=== PATIENT | female | born 2000 | race Caucasian/White ===

== ENCOUNTER 2024-12-30 00:13 | Emergency (ER) | payer BC, SELFPAY ==
[2024-12-30 00:18] VITALS: BP 132/77; PULSE 99; RESP 20; TEMP 37.6
--- NOTE | 2024-12-30 00:31 | W.ED.GENAD ---
Discharge Plan Disposition Patient Disposition: Home Condition: Good Discharge Details Clinical Impression: Vomiting during , Low serum potassium level Primary Care Provider: Unknown,Unknown ED Provider: Adelia Stevenson Home Meds and New Rx's Prescriptions: Continued PNV no.95-ferrous fumarate-FA [] 28 mg iron- 800 mcg tablet 1 tab PO DAILY Discharge Instructions Instructions: Hypokalemia, Morning Sickness ED, Nausea and vomiting in adults, High-potassium diet Additional Instructions: Your nausea and vomiting are likely due to your though we cannot say this with 100% certainty. It is important that you return to the emergency department if you develop other symptoms such as fever or abdominal pain. You can take doxylamine (sometimes under the brand name Unisom) and pyridoxine (Vitamin B6) to help with your symptoms. Take 20mg of doxylamine and 20mg of pyridoxine at bedtime. Call your appliance service technician in the morning to schedule an appointment for as soon as possible (no later than 72 hours) to followup on your visit here and discuss what medications you should take for your nausea. Your potassium was slightly low here in the ED, likely because if your vomiting. Your doctor may want to repeat this blood test, especially if you continue vomiting, and/or start you on a potassium supplement. In the meantime try to increase the amount of potassium in your diet. Return to the emergency department for new or worsening symptoms including fever, abdominal pain, feeling like you are going to pass out, not urinating, or if you cannot keep down any fluids. Stand Alone Forms: Work Release HPI General Date/Time Provider Initiated Documentation: 12/30/24 00:14. Information obtained by: old records reviewed ([facility] this week). HPI Narrative: 24yo F with hx of migraines, currently 10 weeks 5 days with julio IUP by US on 12/27/24, presenting for vomiting. Has had vomiting and and off for the past several weeks, often only once in the morning but sometimes up to 3-4 times a day. Today she has been vomiting consistently all day, ~8 times, does not think she is keeping anything down. Nonbloody nonbilious. This afternoon began to develop a migraine typical of her usual migraines (sharp, left sided, moderate to severe); these usually resolve with tylenol and ibuprofen and rest at home, however she is not able to take ibuprofen currently and vomited immediately after taking the tyelnol. Headache persists and remains typical of her usual migraines. She does not usually have N/V with her headaches; today N/V started before the headache. No numbness, tingling, weakness, no recent head injuries. No recent head injuries. No abdominal pain. No vaginal discharge. No fevers, chills, rash, chest pain, shortness of breath, LE edema, or other concerns. Related Data Home Medications ?Medication ?Instructions ?Recorded ?Confirmed vit no.95-ferrous 1 tab PO DAILY 12/30/24 12/30/24 fumarate 28 mg-folic acid 800 mcg tablet () Allergies Allergy/AdvReac Type Severity Reaction Status Date / Time No Known Allergies Allergy Verified 12/30/24 00:33 Exam Narrative Exam Narrative: General: Alert, well appearing, well nourished, in no acute distress. Head: Normocephalic, atraumatic Neck: Trachea midline, ?Neck supple. ENT: ?MMM.? No oropharygeal lesions or exudate. Cardiac: ?RRR, no murmurs appreciated Resp: No respiratory distress. CTAB. Abd: ?Soft, non-distended, nontender : ?No suprapubic tenderness. Extremities: ?No deformities.? No peripheral edema. Neuro: ? GCS 15.? PERRL.? EOMI.? Fluent speech, no dysarthria. Motor- 5/5 strength symmetric bilateral upper and lower extremities Sensation- ?Intact to light touch and symmetric including upper and lower extremities Gait/station: ?Normal stance.? No truncal ataxia. Steady gait with equal normal steps CRANIAL NERVES: II: Pupils equal and reactive, III, IV, : EOM intact, no gaze preference or deviation, no nystagmus. V: normal sensation in V1, V2, and V3 segments bilaterally VII: no asymmetry, no nasolabial fold flattening VIII: normal hearing to speech IX, X: normal palatal elevation, no uvular deviation XI: 5/5 head turn and 5/5 shoulder shrug bilaterally XII: midline tongue protrusion Medical Decision Making 24yo F with hx of migraines, currently 10 weeks 5 days with julio IUP by US on 12/27/24, presenting for vomiting. ~8 episodes today, does not think she is keeping anything done. Also has a migraine typical of her usual migraines which started this afternoon; was unable to keep down tylenol at home, headache persists. Otherwise well with no abdominal pain or fevers. Vital signs reassuring on arrival, non-toxic on exam, no abdominal tenderness, MM are slightly dry. FHT 130's. Not suggestive of meningitis, encephalitis, intracranial hemmoraghe, giant cell arteritis, bowel obstruction, appendicitis, cholecystitis, ectopic , or other surgical intrabdominal/pelvic process. Not septic. Will give 1L IVFB and treat for N/V as well as migraine; IV reglan, benadryl, acetaminophen, and PO pyridoxine when able to to tolerate PO. Labs reviewed as below, CBC with mild leukocytosis (nonspecific), CMP with borderline low potassium at 3.4 otherwise no electrolyte abnormalities and no acidosis, Mg normal. Will replace potassium orally when able to tolerate PO. EKG NSR, appropriate intervals, no ST segment or T wave abnormalities to suggest occlusive VT, no concerning sequelae of hypokalemia. On reassessment patient reports feeling much better. Headache entirely gone, Nausea much improved. Repeat vital signs reassuring. No further vomiting while in the ED. PO challenged and tolerated well, took oral potassium. Appropriate for close outpatient followup with her OB. The importance of following up for her symptoms and her low potassium (especially if she continues vomiting) was stressed. Advised B6 and doxylamine at home for symptoms. Discharged home; discharge instructions and return precautions were reviewed with patient who verbalized understanding. All questions were answered and she is in full agreement with the plan. Medical Records Medical records reviewed: Yes I reviewed the patient's medical records. Lab Data Lab results reviewed: Yes I reviewed the patient's lab results. Labs: Laboratory Tests Range/Units 12/30/24 00:25 WBC (4.4-10.8) 10^3/uL 14.53 H RBC (3.93-5.22) 10^6/uL 4.69 Hgb (11.2-15.7) g/dL 14.4 Hct (36.0-46.0) % 41.7 MCV (80-95) fL 89 MCH (27.0-33.0) pg 30.7 MCHC (32.0-36.0) % 34.5 RDW (11.7-14.6) % 12.7 Plt Count (130-400) 10^3/uL 301 MPV (8.0-11.0) fL 10.5 Immature Gran % % 0.3 Neutrophils % % 81.4 Lymphocytes % % 13.4 Monocytes % % 4.5 Eosinophils % % 0.1 Basophils % % 0.3 Nucleated RBC % (0.0-0.3) % 0.0 Absolute Neutrophils (1.2-6.7) 10^3/uL 11.83 H Absolute Lymphocytes (1.2-3.4) 10^3/uL 1.95 Absolute Monocytes (0.1-0.8) 10^3/uL 0.65 Absolute Eosinophils (0.0-0.7) 10^3/uL 0.01 Absolute Basophils (0.0-0.2) 10^3/uL 0.04 Sodium (136-145) mmol/L 139 Potassium (3.5-5.1) mmol/L 3.4 L Chloride (98-107) mmol/L 103 Carbon Dioxide (21.0-32.0) mmol/L 26.0 Anion Gap (3-11) mmol/L 10.0 BUN (7-18) mg/dL 5 L Creatinine (0.55-1.02) mg/dL 0.6 Est GFR (CKD-EPI 2020) (mL/min/1.73m2) 130.07 Glucose (74-106) mg/dL 92 Calcium (8.5-10.1) mg/dL 9.3 Magnesium (1.8-2.4) mg/dL 2.0 Total Bilirubin (0.2-1.0) mg/dL 0.4 AST (15-37) U/L 9 L ALT (14-59) U/L 16 Alkaline Phosphatase (46-116) U/L 103 Total Protein (6.4-8.2) g/dL 7.6 Albumin (3.4-5.0) g/dL 3.6 PFSH All Active Problems (Updated 12/30/24 @ 02:24 by Adelia Stevenson MD) Low serum potassium level (Acute) Vomiting during (Acute) Social History Smoking/Tobacco Use Status: Never Smoking risk assessment performed?: Yes
[2024-12-30 00:34] LABS: Abs Immature Grans 0.04 10^3/uL (0.0-0.06); HCT 41.7 % (36.0-46.0); HGB 14.4 g/dL (11.2-15.7); Immature Grans % 0.3 %; MCH 30.7 pg (27.0-33.0); MCHC 34.5 % (32.0-36.0); MCV 89 fL (80-95); MPV 10.5 fL (8.0-11.0); Platelet Count 301 10^3/uL (130-400); RBC 4.69 10^6/uL (3.93-5.22); RDW 12.7 % (11.7-14.6); RDW-SD 41.4 fL; WBC 14.53 10^3/uL (4.4-10.8)
[2024-12-30] MEDS: Normal Saline 1,000 ML 1000 ML IV (00:46)
[2024-12-30] MEDS: diphenhydrAMINE 50 MG/ML VIAL IVP (00:47)
[2024-12-30] MEDS: Metoclopramide 10 MG/2 ML VIAL IVP (00:47)
[2024-12-30] MEDS: ACETAMINOPHEN 1,000 MG/100 ML BAG 400 MG IVPB (00:48)
[2024-12-30 00:49] LABS: ALT 16 U/L (14-59); AST 9 U/L (15-37); Albumin 3.6 g/dL (3.4-5.0); Alkaline Phosphatase 103 U/L (46-116); Anion Gap 10.0 mmol/L (3-11); BUN 5 mg/dL (7-18); Bilirubin, Total 0.4 mg/dL (0.2-1.0); CO2 26.0 mmol/L (21.0-32.0); Calcium 9.3 mg/dL (8.5-10.1); Chloride 103 mmol/L (98-107); Estimated GFR 130.07 (mL/min/1.73m2); Glucose 92 mg/dL (74-106); Magnesium 2.0 mg/dL (1.8-2.4); Potassium 3.4 mmol/L (3.5-5.1); Sodium 139 mmol/L (136-145); Total Protein 7.6 g/dL (6.4-8.2)
--- NOTE | 2024-12-30 01:45 | RT.EKG_ITS ---
APPROVED REPORT Exam: Resting ECG Reason for Exam: borderline hypokalemia Patient Location: E HR:77 bpm ECG Measurements Heart Rate 77 AXIS SC 131 P 26 QRSd 69 QRS 57 QT 390 T 34 QTc 443 Conclusion Sinus rhythm...normal P axis, V-rate 60- [address] segment or T wave abnormalities to suggest occlusive CA
[2024-12-30] MEDS: Potassium Chloride Liquid 20 MEQ PKT PO (02:20)
[2024-12-30 02:23] VITALS: BP 99/57; PULSE 72; RESP 14; TEMP 36.9; O2SAT 100
== END 2024-12-30 03:15 | disposition home or self-care (01) ==
PROVIDERS: Emergency Provider Student in an Organized Health Care Education/Training Program
DX: E87.6 Hypokalemia; Z3A.10 10 weeks gestation of pregnancy; O21.8 Other vomiting complicating pregnancy
CPT/HCPCS: 80053; 81025; 93005; 96365; 96375; 99284; 83735; 85025; 93010; 99283; J0131; J1200; J2765

== ENCOUNTER 2025-01-13 16:12 | Emergency (ER) | payer BC, SELFPAY ==
[2025-01-13 16:16] VITALS: BP 118/78; PULSE 87; RESP 18; TEMP 36.3; O2SAT 98
--- NOTE | 2025-01-13 16:27 | W.ED.GENAD ---
Discharge Plan Disposition Patient Disposition: Home Condition: Stable Discharge Details Clinical Impression: Constipation during Primary Care Provider: Unknown,Unknown ED Provider: Ashley Mendoza Home Meds and New Rx's Prescriptions: No Action PNV no.95-ferrous fumarate-FA [] 28 mg iron- 800 mcg tablet 1 tab PO DAILY ondansetron HCl 4 mg tablet 4 mg PO BID-TID PRN Discharge Instructions Instructions: Constipation, Adult ED Additional Instructions: Please use the enema at home as directed. Wait approximately 30 to 45 minutes, the longer you can keep it in the better able to work. If you have no production of bowel movement please drink half of the magnesium citrate, wait approximately 30 to 45 minutes and then drink the other half. This should produce a bowel movement in 1 to 2 hours. Or sooner. Please continue to increase oral fluids, increase movement. Constipation is not uncommon with and as your prior progresses you may find it harder to have normal bowel movements. Follow up with primary care provider in 3-5 days. Return to ED sooner if any worsening or concerns. Thank you for allowing us to care for you today. Stand Alone Forms: Portal Information Referrals: [facility] [place] [Provider Group] - 5 days Referral Note: ER follow up call for appt Clinical Impression: Constipation during [employer] INTERFACE DEVELOPER,[facility] [OTHER, [employer] US[employer] INTERFACE DEVELOPER] HPI General Mode of arrival: ambulatory. Date/Time Provider Initiated Documentation: 01/13/25 16:15. Limitations to Documentation: no limitations. Information obtained by: patient, RN notes reviewed and old records reviewed. HPI Narrative: 21-year-old female presents to the ER with a chief complaint of constipation x 1 week. Has tried MiraLAX and prune juice at home with little to no relief. She is currently 3 months G1, P0. Denies any dysuria does report some mild lower back pain denies any vomiting fever abdominal pain. No other associated symptoms or concerns. Related Data Home Medications Medication Instructions Recorded Confirmed vit no.95-ferrous 1 tab PO DAILY 12/30/24 01/13/25 fumarate 28 mg-folic acid 800 mcg tablet () ondansetron HCl 4 mg tablet 4 mg PO BID-TID PRN 01/13/25 01/13/25 Allergies Allergy/AdvReac Type Severity Reaction Status Date / Time No Known Allergies Allergy Verified 01/13/25 16:23 General Stated Complaint: Abd Prob IBAN: 4 Review of Systems All systems reviewed & are unremarkable except as noted in HPI and below Gastrointestinal Gastrointestinal: Denies abdominal pain, Reports constipation, Denies nausea and Denies vomiting Exam Narrative Exam Narrative: Constitutional: Alert and oriented x3. Appears stated age. Normal body habitus. Head: Normocephalic, no trauma. Chest: RRR, Normal S1, S2, distal pulses intact. Resp: Lungs clear to auscultation bilaterally, no wheezes, rales, or rhonchi. Abdomen: Soft, non-distended, Normoactive bowel sounds all 4 quads. Consistent with 3-month gravid abdomen . Musculoskeletal: Normal gait, Moves all 4 extremities without difficulty. Skin: No suspicious rashes or lesions. Capillary refill less than 2 sec. Neurologic: Cranial nerves II-XII intact. Alert and oriented x 3. Motor: No deficits noted. Sensory: Intact bilaterally all 4 extremities. Hematologic/Lymphatic: No ecchymosis, no lymphadenopathy. Course Vital Signs Vital signs: Vital Signs Temperature 36.3 C L 01/13/25 16:16 Pulse 87 01/13/25 16:16 Respiratory Rate 18 01/13/25 16:16 Blood Pressure 118/78 01/13/25 16:16 Pulse Oximetry 98 01/13/25 16:16 Temperature 36.3 C L 01/13/25 16:16 Temperature Source Oral 01/13/25 16:16 Pulse 87 01/13/25 16:16 Respiratory Rate 18 01/13/25 16:16 Blood Pressure 118/78 01/13/25 16:16 Blood Pressure Position Sitting 01/13/25 16:16 Pulse Oximetry 98 01/13/25 16:16 Oxygen Delivery Method Room Air 01/13/25 16:16 Oxygen Flow Rate 0 01/13/25 16:16 Medical Decision Making 21-year-old female presents to the ER with a chief complaint of constipation x 1 week. Has tried MiraLAX and prune juice at home with little to no relief. She is currently 3 months G1, P0. Denies any dysuria does report some mild lower back pain denies any vomiting fever abdominal pain. No other associated symptoms or concerns. Will send patient home with Fleets enema and Magnesium Citrate with follow up with PCP. This text was generated using [employer] system, please disregard any oddities of phrase or misspellings. PFSH All Active Problems (Updated 01/13/25 @ 16:46 by Ashley Mendoza NP) Constipation during (Acute) Low serum potassium level (Acute) Vomiting during (Acute) Social History Smoking/Tobacco Use Status: Never Smoking risk assessment performed?: Yes Alcohol Intake: never Substance use type: does not use Housing: house Do you feel safe at home: Yes Do you feel safe in your relationship?: Yes
[2025-01-13] MEDS: Na Phosphate Enema-Adult 133 ML BTL PR (16:52)
[2025-01-13] MEDS: Magnesium Citrate 300 ML BTL PO (16:53)
[2025-01-13 17:05] VITALS: BP 118/78; PULSE 87; RESP 18; TEMP 36.3; O2SAT 98
== END 2025-01-13 17:20 | disposition home or self-care (01) ==
PROVIDERS: Emergency Provider Registered Nurse Emergency
DX: K59.00 Constipation, unspecified (principal)
CPT/HCPCS: 99283 ×2

== ENCOUNTER 2025-01-14 02:39 | Emergency (ER) | payer BC, SELFPAY ==
[2025-01-14 02:42] VITALS: BP 114/79; PULSE 111; RESP 24; TEMP 36.4; O2SAT 98
--- NOTE | 2025-01-14 03:47 | W.ED.GENAD ---
Discharge Plan Disposition Patient Disposition: Home Condition: Good Discharge Details Clinical Impression: Constipation Primary Care Provider: Unknown,Unknown ED Provider: Pop Yates Home Meds and New Rx's Prescriptions: No Action PNV no.95-ferrous fumarate-FA [] 28 mg iron- 800 mcg tablet 1 tab PO DAILY ondansetron HCl 4 mg tablet 4 mg PO BID-TID PRN Discharge Instructions Instructions: Constipation, Adult ED Additional Instructions: At this time you have had a notable improvement of your bowel movement. Please take over the counter MiraLAX or Colace to help maintain soft stools. Drink 10 to 12 cups of water or electrolyte solution per day minimum. If you notice any worsening of your symptoms, or any new symptoms such as vomiting, diarrhea, fever, chills, shortness of breath, chest pain, numbness, weakness, or fainting , please return immediately to the emergency department for reevaluation. Please follow up with your primary care provider as soon as possible for reassessment and reevaluation. As always, it was a pleasure participating in your medical care today. Stand Alone Forms: Portal Information HPI General Date/Time Provider Initiated Documentation: 01/14/25 02:41. HPI Narrative: This is a 24-year-old female who is G1, P0 currently at 13 weeks who presents for constipation. Patient was seen earlier today by Anni Vázquez and appropriately treated with magnesium citrate for home, as well as recommendations for outpatient enema. Patient went home and took half the bottle of mag citrate, had notable cramps, and then had a fair bit of watery stool. She then felt like there was a large stool ball stuck at her rectum. She did not perform the enema. She did come to the ER for further evaluation. She admits to some nausea and a single episode of dry heaving, but no other abdominal complaint. No fever or chills. No other modifying factors. Related Data Home Medications Medication Instructions Recorded Confirmed vit no.95-ferrous 1 tab PO DAILY 12/30/24 01/14/25 fumarate 28 mg-folic acid 800 mcg tablet () ondansetron HCl 4 mg tablet 4 mg PO BID-TID PRN 01/13/25 01/14/25 Allergies Allergy/AdvReac Type Severity Reaction Status Date / Time No Known Allergies Allergy Verified 01/14/25 02:42 General Stated Complaint: Abd Prob IBAN: 3 Exam Narrative Exam Narrative: 1.Const: Well-nourished, Well-developed, appearing stated age 2.Eyes: PERRL, no conjunctival injection, and symmetrical lids. 3.ENT: Atraumatic external nose and ears. Moist MM. Neck: Symmetric, trachea midline, No thyromegaly. 4.CVS: +S1/S2, Peripheral pulses 2+ and equal in all extremities. Brisk capillary refill in all extremities. 5.RESP: Unlabored respiratory effort. Clear to auscultation bilaterally. No wheezes rales or rhonchi 6.GI: Soft, Nontender/Nondistended, No hepatosplenomegaly. No guarding or rebound. Appropriately gravid abdomen. Rectal exam demonstrates stool near the edge of the rectum. 7.MSK: Normocephalic/Atraumatic, Extremities w/o deformity or ttp No cyanosis or clubbing, Normal movement of all extremities 8.Skin: Warm, Dry. No rashes or lesions. 9.Neuro: client advisor II-XII grossly intact. Sensation grossly intact, no focal neurologic deficits. 10.Psych: (AAO) x3. Appropriate mood and affect Course Vital Signs Vital signs: Vital Signs Temperature 36.4 C L 01/14/25 02:42 Pulse 111 H 01/14/25 02:42 Respiratory Rate 24 01/14/25 02:42 Blood Pressure 114/79 01/14/25 02:42 Pulse Oximetry 98 01/14/25 02:42 Temperature 36.4 C L 01/14/25 02:42 Temperature Source Oral 01/14/25 02:42 Pulse 111 H 01/14/25 02:42 Respiratory Rate 24 01/14/25 02:42 Blood Pressure 114/79 01/14/25 02:42 Blood Pressure Position Standing 01/14/25 02:42 Pulse Oximetry 98 01/14/25 02:42 Oxygen Delivery Method Room Air 01/14/25 02:42 Oxygen Flow Rate 0 01/14/25 02:42 Pain Level 9 01/14/25 02:42 Medical Decision Making This is a 24-year-old female who is G1, P0 currently at 13 weeks who presents for constipation. Patient was seen earlier today by Anni Vázquez and appropriately treated with magnesium citrate for home, as well as recommendations for outpatient enema. Patient went home and took half the bottle of mag citrate, had notable cramps, and then had a fair bit of watery stool. She then felt like there was a large stool ball stuck at her rectum. She did not perform the enema. She did come to the ER for further evaluation. She admits to some nausea and a single episode of dry heaving, but no other abdominal complaint. No fever or chills. No other modifying factors. Exam demonstrates an appropriately gravid, benign appearing abdomen with no evidence of any acute surgical pathology. She has stool at the rectal exit. Will perform an enema to help with stool defecation. 6:03 AM 2 complete enemas were performed, patient had a very large bowel movement after this. Patient feels well and would like to go home. Patient will be discharged. Recommend Colace outpatient. Discussed red flags for which to return. I have extensively reviewed the treatment plan and discharge instructions with the patient. I have addressed all patient concerns at this time. The patient was made aware of what symptoms to monitor for that would warrant a return to the emergency department. Discussed the plan with the patient, they demonstrate verbal understanding and agreement with our assessment and plan at this time. The documentation in this chart was dictated using [employer] dictation software. Please excuse any dictation errors. PFSH All Active Problems (Updated 01/14/25 @ 05:51 by Pop Yates DO) Constipation (Acute) Constipation during (Acute) Low serum potassium level (Acute) Vomiting during (Acute) Social History Smoking/Tobacco Use Status: Never Smoking risk assessment performed?: Yes Alcohol Intake: never Drug use: Never Substance use type: does not use Housing: house Do you feel safe at home: Yes Do you feel safe in your relationship?: Yes
[2025-01-14 06:15] VITALS: BP 106/67; PULSE 100; RESP 20; TEMP 36.6; O2SAT 97
== END 2025-01-14 06:18 | disposition home or self-care (01) ==
PROVIDERS: Emergency Provider Student in an Organized Health Care Education/Training Program
DX: K59.00 Constipation, unspecified; O99.611 Diseases of the digestive system complicating pregnancy, first trimester
CPT/HCPCS: 99283 ×2